=== PATIENT | female | born 1955 | race Caucasian/White ===

== ENCOUNTER → 2018-04-28 | Outpatient (CLI) | payer OTHER ==
--- NOTE | 2018-05-01 14:17 | Diagnostic Imaging Report ---
TECHNIQUE: Magnetic resonance imaging of the RIGHT KNEE was performed WITHOUT injected contrast. HISTORY: Meniscus derangement, hurts around knee, going up stairs COMPARISON: None available. FINDINGS: LIGAMENTS AND TENDONS: ACL: Intact PCL: Intact Collateral ligaments: Intact Iliotibial band: Unremarkable Popliteal tendon: Intact Extensor mechanism: Intact JOINT: Menisci: Medial: Complex tearing, most notably the free margin and mid substance of the body, resulting in peripheral extrusion of the body remnants. Lateral: Intact Articular Cartilage: Medial Compartment: Full-thickness erosion of the anterior weightbearing cartilage. Lateral Compartment: No focal defect. Patellofemoral Compartment: Erosion and fibrillation, most notably high-grade to full-thickness at the inferior patella and adjacent trochlea. Joint Fluid: Synovitis with trace effusion and a mildly distended Reich's cyst measuring up to 2.5 cm (AP) x 1.9 cm (ML) x 4.1 cm (CC). BONES: No focal or infiltrative bone marrow replacing abnormality. No acute fracture. SOFT TISSUES: Otherwise, unremarkable. IMPRESSION: 1. Medial and patellofemoral compartment degenerative changes, including degenerative tearing of the medial meniscus. 2. Reactive synovitis with associated trace effusion and mildly distended Reich's cyst. Signed by: Dr. Pardeep Banda D.O., M.M.M. on 04/28/2018 2:01 PM
== END ==
LOC: MRI 10:58
PROVIDERS: ATTEND Family Medicine
DX: M25.561 Pain in right knee (principal); M23.303 Other meniscus derangements, unspecified medial meniscus, right knee; G89.29 Other chronic pain